=== PATIENT | female | born 1990 | race Caucasian/White ===

== ENCOUNTER 2018-12-25 11:30 | Emergency (ER) | payer SELFPAY ==
[2018-12-25] MEDS ORDERED: ISOVUE-370 76%-LOCM 1 ML ONE (11:52)
[2018-12-25 12:08] LABS: #Eosinphils 0.1 thou/uL (0.0-0.7); #Lymphocytes 2.5 thou/uL (1.20-3.40); #Monocytes 0.7 thou/uL (0.11-0.59); #Neutrophils 9.9 thou/uL (1.40-6.50); %Basophils 0.3 % (0.0-1.0); %Eosinophils 0.7 % (0.0-10.0); %Lymphocytes 18.6 % (21.0-51.0); %Neutrophils 75.4 % (42.0-75.0); Hemoglobin 11.8 g/dL (12.0-16.0); Mean Corpuscular HGB CONC 31.8 g/dL (32.0-36.0); Mean Corpuscular Hemoglobin 25.7 pg (27.0-31.0); Mean Platelet Volume 6.9 fL (7.4-10.4); Platelet Count 400 thou/uL (130-400); RBC Distribution Width 13.1 % (11.5-14.5); White Blood Cell (WBC) Count 13.1 thou/uL (4.8-10.8)
[2018-12-25] MEDS ORDERED: Morphine 4 MG/ML VIAL ONE ×2 (12:09→13:54)
[2018-12-25 12:27] LABS: ALT (SGPT) 11 U/L (8-55); AST (SGOT) 12 U/L (5-34); Albumin 4.4 g/dL (3.5-5.0); Alkaline Phosphatase 73 U/L (40-150); Anion Gap 12 mmol/L (10-20); BUN (Urea Nitrogen) 13 mg/dL (7.0-18.7); Bilirubin, Total 0.6 mg/dL (0.2-1.2); Calc. Creatinine Clearance 0 mL/min (70-130); Calcium 9.4 mg/dL (7.8-10.44); Carbon Dioxide 26 mmol/L (22-29); Chloride 105 mmol/L (98-107); Estimated GFR-MDRD Greater than 90; Globulin 3.1 g/dL (2.4-3.5); Glucose 89 mg/dL (70-105); Lipase 42 U/L (8-78); Potassium 4.2 mmol/L (3.5-5.1); Protein, Total 7.5 g/dL (6.0-8.3); Sodium 139 mmol/L (136-145)
--- NOTE | 2018-12-25 13:15 | CT ---
CT OF THE ABDOMEN AND PELVIS WITH IV CONTRAST INDICATION: Lower abdominal pain; right greater than left COMPARISON: None FINDINGS: ABDOMEN: Lung bases: Clear Liver: No focal lesion. Gallbladder: Normal appearing. Pancreas: Normal. Adrenal glands: Normal. Spleen: Normal. Kidneys: Normal. Retroperitoneum of the upper abdomen: No lymphadenopathy or free fluid is identified. Pelvis: Small and large bowel: Normal. Normal appendix Bladder: Normal. Rectal and perirectal soft tissues:Normal. Reproductive structures: There is an 8.3 x 5.7 cm mixed density, partially calcified mass within the region of the right adnexa suspicious for a large dermoid. Small amount of free fluid is present within the pelvis. The left adnexa measures 3.9 cm in length. Uterus is normal-appearing. Free fluid in pelvis: Mild free fluid Lymphadenopathy pelvis: There are a few shotty appearing lymph nodes within the right lower quadrant mesentery. Osseous structures: No acute osseous abnormality. No destructive osteolytic or osteoblastic lesion i s identified. IMPRESSION: 1. Large mixed density mass within the region of the right adnexa suspicious for a large dermoid tumo r. Small amount of free fluid is present within the pelvis. With the patient's clinical symptoms, right ovarian torsion cannot be excluded. Recommend consideration for pelvic ultrasound for spectral Doppler evaluation of the right adnexa. 2. Findings were called to Dr. Bernardo at 1:10 PM on 12/25/2018.
--- NOTE | 2018-12-25 13:48 | ULT ---
TRANSABDOMINAL TRANSVAGINAL PELVIC ULTRASOUND DATE:: 12/25/2018 12:33 PM CLINICAL HISTORY: Adnexal mass with severe cramping. COMPARISON: CT the abdomen and pelvis dated 12/25/2018 TECHNIQUE: Grayscale, color Doppler and spectral Doppler images were obtained of the pelvis see a tra nsabdominal transvaginal approach Uterus: Size: 8.6 x 3.1 x 4.7 cm Mass: None Cervix: Within normal limits Endometrium: Normal Endometrial Thickness: 9 mm Ovaries: Size: right measures 8.7 x 6.8 x 4.9 cm; left measures 3.3 x 3.1 x 2.7 cm Mass: There is a 6.8 x 3.7 cm mixed echogenicity mass involving the right adnexa consistent with the patient's known right adnexal dermoid.. Flow: Normal Cul-de-sac: Minimal free fluid IMPRESSION: Large mixed echogenicity right adnexal mass consistent with a right adnexal dermoid lesion. There is flow documented within the visualized right ovarian tissue adjacent to this large mass. The visualized uterus and left adnexa were normal appearing.
--- NOTE | 2018-12-25 22:16 | CON ---
DATE OF CONSULTATION: 12/25/2018 REGULAR PHYSICIAN: Carole Paredes MD EVALUATING PHYSICIAN: Rik Bobo MD REASON FOR CONSULTATION: Lower abdominal pain in the ER. HISTORY OF PRESENT ILLNESS: Ms. Latif is a 28-year-old white G0, P0 with a last menstrual period that began on 12/19 and it is ended today, who presents complaining of onset of lower abdominal pain since last evening. She denies nausea, vomiting, fever, chills, or change in bowel or bladder habits. She states that she was seen by Dr. Carole Paredes in the office of [facility] approximately 6 months ago and had a normal evaluation at that time. PAST GYNECOLOGIC HISTORY: She has regular cycles that last 5 to 7 days. PAST MEDICAL HISTORY: None. PAST SURGICAL HISTORY: None. CURRENT MEDICATIONS: None. ALLERGIES: NO KNOWN ALLERGIES. SOCIAL HISTORY: She denies tobacco, alcohol, or drug use. LABORATORY DATA: White count 13.1, hemoglobin 11.8, hematocrit 37.2, platelet count 400,000. Sodium 139, potassium 4.2, creatinine 0.076, total bilirubin 0.6, AST 12, ALT 11, and lipase of 42. PHYSICAL EXAMINATION: VITAL SIGNS: In the ER, as I talked with her, blood pressure is 111/71, pulse is 87. She is afebrile. GENERAL: She is pleasant. She is in mild discomfort after receiving morphine. ABDOMEN: Soft, not distended. There is tenderness to deep palpation, but there is no guarding or rebound. DIAGNOSTIC STUDIES: CT of the abdomen shows a large mixed density mass approximately 8-cm in size. Ultrasound was recommended. This was performed and returned showing a 8.7 x 6.8 x 4.9 cm complex most consistent with a dermoid. There is flow to that ovary. There is only a small amount of free fluid to that area. ASSESSMENT: Dermoid cyst of the ovary. PLAN: At this point, it would appear that the patient's pain is reasonably controlled and she can follow up as an outpatient for removal of the dermoid as there appears to be no evidence of torsion at this time. She will be prescribed pain medicine and anti-inflammatories here in the ER, and I have encouraged her to follow up with Dr. Paredes for definitive treatment of her dermoid. She was given torsion precautions and told to return should she have increased pain. Job ID: [id number]
== END 2018-12-25 15:18 | disposition home or self-care (01) ==
LOC: ERS 11:30
DX: D36.7 Benign neoplasm of other specified sites (principal)
CPT/HCPCS: 36415; 74177; 76856; 80053; 83690; 85025; 96361; 96374; 96376; J2270; Q9966